=== PATIENT | male | born 1950 | race Caucasian/White ===

== ENCOUNTER 2019-09-30 12:52 | Inpatient (IN) | payer MEDICAID ==
[2019-09-30] MEDS ORDERED: ACETAMINOPHEN SUPPOSITORY 650 MG SUPP RECTAL PRN (13:33)
[2019-09-30] MEDS ORDERED: ONDANSETRON 4 MG/2 ML VIAL IVP PRN (13:33)
[2019-09-30] MEDS ORDERED: LORazepam 2 MG/ML INJ IV PRN (13:33)
[2019-09-30] MEDS ORDERED: PHENobarbital SODIUM 130 MG/ML 1 ML VIAL IM PRN (13:38)
[2019-09-30] MEDS ORDERED: HYDROmorphone (PF) 50 MG in SODIUM CHLORIDE 0.9% 45 ML IV SCH (13:45)
[2019-09-30] MEDS: HYDROmorphone 1 MG/ML 1 ML SYRINGE IVP PRN ×3 (14:58→21:12)
[2019-10-01] MEDS: HYDROmorphone 1 MG/ML 1 ML SYRINGE IVP PRN ×3 (01:05→06:22)
--- NOTE | 2019-10-01 14:23 | HP ---
HISTORY AND PHYSICAL CHIEF COMPLAINT: Ischemic encephalopathy. HISTORY OF PRESENT ILLNESS: This is the first known admission for this 69-year-old white male. He was admitted to [facility] several months ago after having several strokes resulting in profound ischemic encephalopathy. Initially, he was conscious, but he has steadily deteriorated. He has been very agitated during his entire stay. He has been very overactive and frequently falls out of his wheelchair and standing consistently, sustaining abrasions and contusions. The situation has gotten steadily worse. He is now picking at his skin. He has advanced psoriasis. However, still is picking at his skin, pulling off scabs, and has become virtually impossible to manage in the usp. On top of that, he is becoming more and more demented to the point he cannot communicate at all. The decision was made by the family (sister) to go ahead and refer to hospice. He was brought into the hospital for IV management of his pain and anxiety. REVIEW OF SYSTEMS: Unobtainable. Past medical history, family history and personal and social histories are largely unknown and not obtainable. PHYSICAL EXAMINATION: Blood pressure is 108/58 with a pulse of 83, respirations were shallow at 15. He is afebrile. GENERAL: He appeared to be dehydrated and sedated. His nutrition is poor. HEAD, EARS, EYES, NOSE, MOUTH, AND THROAT: Grossly normal. NECK: Neck veins are not distended and there are no carotid bruits. LUNGS: Breath sounds are heard on both sides and they are clear. CARDIAC: Exam demonstrates sinus tachycardia. No murmurs or extra sounds. ABDOMEN: Flat, soft, and scaphoid without palpable masses or visceromegaly. EXTREMITIES: Demonstrated extensive psoriatic skin lesions and he has a left AK amputation. At present time he is sedated and comatose. IMPRESSION: 1. Severe ischemic encephalopathy. 2. Previous supravasculare reactions. 3. Dehydration. 4. Psoriasis. 5. Malnutrition. PLAN: 1. Bed rest. 2. Hospice referral. 3. Follow hospice guidelines for sedation and control of pain. MMODL / IJN: [id number] /
--- NOTE | 2019-10-01 14:38 | PN ---
PROGRESS NOTE DATE OF SERVICE: 10/01/2019 CHIEF COMPLAINT: Uncontrolled agitation with vascular encephalopathy. HISTORY OF PRESENT ILLNESS: The patient is sedated and obtunded. PHYSICAL EXAMINATION: Breath sounds are heard bilaterally. Oral cavity is dry. Neck veins are not distended. Extremities are the same. IMPRESSION: Ischemic encephalopathy with profound dementia and agitation/delirium. PLAN: Continue with management of his anxiety and pain. MMODL / IJN: [id number] /
--- NOTE | 2019-10-03 17:32 | DS ---
DISCHARGE SUMMARY CHIEF COMPLAINT: Cerebrovascular dementia. HISTORY OF PRESENT ILLNESS AND PHYSICAL EXAMINATION: Details of this man's history and physical can be found in the initial workup. LABORATORY STUDIES: While he was in the hospital he had laboratory studies, details of which can be found in the laboratory section of his chart. COURSE IN THE HOSPITAL: After admission he was placed on bedrest, started on intravenous fluids, and his medications were managed by Hospice. He was started on a Dilaudid drip and Ativan. He immediately was tranquilized and respirations became more regular and shallow. He the following morning. FINAL DIAGNOSES: 1. Atherosclerotic cardiovascular disease. 2. Vascular dementia. 3. Psoriasis. OPERATIONS: None. CONSULTATION: Hospice. He was not improved. MMODL / IJN: [id number] /
== END 2019-10-01 13:15 | disposition expired | DRG 951 ==
LOC: 5NMEDONC 14:55
PROVIDERS: ADMIT Family Medicine; ATTEND Family Medicine
DX: Z51.5 Encounter for palliative care (principal); G93.49 Other encephalopathy; E46 Unspecified protein-calorie malnutrition; F05 Delirium due to known physiological condition; F03.90 Unspecified dementia, unspecified severity, without behavioral disturbance, psychotic disturbance, mood disturbance, and anxiety; L40.9 Psoriasis, unspecified; F41.9 Anxiety disorder, unspecified; R29.6 Repeated falls; R00.0 Tachycardia, unspecified; E86.0 Dehydration; Z86.73 Personal history of transient ischemic attack (TIA), and cerebral infarction without residual deficits; Z91.81 History of falling; Z89.612 Acquired absence of left leg above knee